=== PATIENT | male | born 1995 | race Caucasian/White ===

== ENCOUNTER 2020-08-11 12:11 | Emergency (ER) | payer MEDICARE, OTHER | END 2020-08-11 12:45 | disposition home or self-care (01) | LOC: MADERS 12:11 | DX: H65.91 Unspecified nonsuppurative otitis media, right ear (principal); R51.9 Headache, unspecified; J06.9 Acute upper respiratory infection, unspecified; F17.210 Nicotine dependence, cigarettes, uncomplicated | CPT/HCPCS: 99283 ==